=== PATIENT | female | born 1985 | race Hispanic/Latino ===

== ENCOUNTER 2018-04-22 15:49 | Emergency (ER) | payer OTHER, SELFPAY ==
[2018-04-22 16:31] LABS: #Basophils 0.1 thou/uL (0.0-0.2); #Eosinphils 0.3 thou/uL (0.0-0.7); #Lymphocytes 3.1 thou/uL (1.20-3.40); #Monocytes 0.5 thou/uL (0.11-0.59); #Neutrophils 5.7 thou/uL (1.40-6.50); %Basophils 0.8 % (0.0-1.0); %Eosinophils 2.9 % (0.0-10.0); %Lymphocytes 32.4 % (21.0-51.0); %Monocytes 5.3 % (0.0-10.0); %Neutrophils 58.5 % (42.0-75.0); Hemoglobin 12.4 g/dL (12.0-16.0); Mean Corpuscular HGB CONC 32.5 g/dL (32.0-36.0); Mean Corpuscular Hemoglobin 29.5 pg (27.0-31.0); Mean Corpuscular Volume 90.7 fL (78.0-98.0); Mean Platelet Volume 7.1 fL (7.4-10.4); Platelet Count 265 thou/uL (130-400); RBC Distribution Width 11.6 % (11.5-14.5); Red Blood Cell (RBC) Count 4.22 mill/uL (4.20-5.40); White Blood Cell (WBC) Count 9.7 thou/uL (4.8-10.8)
[2018-04-22] MEDS ORDERED: HYDROcodone/Acetaminophen 5/325 mg Tablet ONE (20:10)
--- NOTE | 2018-04-22 21:54 | ULT ---
PELVIC ULTRASOUND: Date: 04/22/18 HISTORY: Pelvic pain and vaginal bleeding in a patient with positive . FINDINGS: Transabdominal and endovaginal sonographic images of the pelvis are obtained. FINDINGS: The uterus demonstrates normal sonographic appearance and measures 9.3 cm x 4.9 cm x 5.3 cm. The endo metrial stripe is thickened, measuring 1.6 cm. No fluid or fluid collection is seen in the endometria l canal. Right ovary measures 3.0 cm x 2.1 cm x 1.9 cm. Left ovary measures 2.4 cm x 2.2 cm x 3.2 cm. Dominant follicle is seen within the right ovary. Doppler evaluation of each ovary with spectral analysis and color flow evaluation demonstrates arteri al flow in each ovary. The left ovary is only visualized on transabdominal imaging and the right ovar y is only visualized on endovaginal imaging. Trace amount of free fluid is seen in the cul-de-sac, which is probably physiologic in origin. IMPRESSION: 1. No fluid collection seen in the endometrial canal to suggest an intrauterine gestation. By histor y, the patient is reportedly 4 weeks . Findings may be related to very early intrauterine ges tation and continued serial follow-up quantitative beta HCG levels are recommended. Ectopic cannot be excluded based on sonographic evaluation. 2. Normal appearing bilateral ovaries with arterial flow documented in each ovary. Above findings discussed with Dr. Montelongo in the emergency department on 04/22/18 at 2108 hours. CODE CR. POS: [facility]
== END 2018-04-22 21:37 | disposition home or self-care (01) ==
LOC: ERS 15:49
DX: O20.9 Hemorrhage in early pregnancy, unspecified (principal); Z3A.01 Less than 8 weeks gestation of pregnancy
CPT/HCPCS: 36415; 76856; 84702; 85025; 86900; 86901; 99284

== ENCOUNTER 2018-04-24 16:57 | Emergency (ER) | payer SELFPAY ==
[2018-04-24 17:45] LABS: BHCG - Serum POSITIVE (NEGATIVE); Pregs Control Background? CLEAR/WHITE (CLR/WHITE); Pregs Control Bar Appear? YES (CONTROL BAR)
== END 2018-04-24 19:05 | disposition home or self-care (01) ==
LOC: ERS 16:57
DX: O03.9 Complete or unspecified spontaneous abortion without complication (principal)
CPT/HCPCS: 36415; 84702; 84703; 99284